=== PATIENT | female | born 1980 | race Caucasian/White ===

== ENCOUNTER → 2017-07-16 | Outpatient (CLI) | payer OTHER | LOC: BMCIMAGING 11:09 | PROVIDERS: ATTEND Physician Assistant | DX: M79.89 Other specified soft tissue disorders (principal); M21.611 Bunion of right foot ==

== ENCOUNTER 2017-11-09 09:45 | Inpatient (IN) | payer OTHER ==
--- NOTE | 2017-11-09 10:22 | PDGENHP ---
History and Physical - Chief Complaint leaking fluid since 0400 clear fluid - History of Present Illness Patient is a 37 year old at 38 2/7 weeks gestation who presents to labor and delivery for SRom and contractions. SROM at 0400 clear fluid. + contractions +FM no vaginal bleeding History Information - Allergies/Home Medication List Allergies/Adverse Reactions: aloe Allergy (Verified 11/09/17 10:18) I have personally reviewed and updated: medical history Review of Systems Review of Systems: Physical Exam Physical Exam: Constitutional: no apparent distress Cardiovascular: regular rate and rhythym, no murmur, rub, or gallop Respiratory: no respiratory distress, clear to auscultation Gastrointestinal: soft, non-tender abdomen, no palpable masses, other (Gravid uterus EFW 8LB) Genitourinary: other (/high posterior nitrazine + Amnisure + Cephalic by ultrasound) Skin: warm, normal color Musculoskeletal: full muscle strength, no muscle tenderness Neurologic: AAOx3, sensation intact bilaterally Psychiatric: interacting appropriately, not anxious Lab Data & Imaging Review Amnisure + FHT 130 moderate variability Cat I [place] irregular q 6 min Assessment & Plan Assessment: IUP at 38 2/7 weeks gestation SRom clear fluid AMnisure positive AB negative/Rubella immune/GBS negative Cephalic by ultrasound Plan: Admit to labor and Delivery Expectant management Consider pitocin if no cervical change
[2017-11-09] MEDS ORDERED: OLIVE OIL 118 ML BTL MISC PRN (11:08)
[2017-11-09] MEDS ORDERED: OXYTOCIN 20 UNIT in LR 1,000 ML IV PRN (11:08)
[2017-11-09] MEDS ORDERED: LR 1,000 ML IV PRN (11:08)
[2017-11-09] MEDS ORDERED: EPSOM SALT 454 GM TP PRN (11:08)
[2017-11-09] MEDS ORDERED: AMMONIA AROMATIC 1 EACH AMP IH PRN (11:08)
[2017-11-09] MEDS ORDERED: MISOPROSTOL 200 MCG TAB PO PRN (11:08)
[2017-11-09] MEDS ORDERED: TERBUTALINE SULFATE 1 MG/ML VIAL IV PRN (11:08)
[2017-11-09 12:44] LABS: PLATELET COUNT 130 10^3/uL (150-400)
[2017-11-09] MEDS ORDERED: LIDOCAINE 1% 300 MG/30 ML SDV ONE (14:16)
[2017-11-09] MEDS ORDERED: OLIVE OIL 118 ML BTL ONE (14:16)
[2017-11-09] MEDS ORDERED: AMMONIA AROMATIC 1 EACH AMP IH ONE (14:17)
[2017-11-09] MEDS ORDERED: MISOPROSTOL 200 MCG TAB ONE (14:17)
[2017-11-09] MEDS ORDERED: OXYTOCIN 10 UNIT/ML VIAL ONE (14:17)
[2017-11-09] MEDS ORDERED: PHENYLEPHRINE HCL 100 MCG/ML SYR ONE (15:00)
[2017-11-09] MEDS ORDERED: fentaNYL 100 MCG/2 ML INJ ONE (15:01)
[2017-11-09] MEDS ORDERED: BUPIVACAINE/EPI 0.5% 30 ML SDV ONE (15:03)
[2017-11-09] MEDS ORDERED: ONDANSETRON 4 MG/2 ML VIAL IVP PRN (15:27)
[2017-11-09] MEDS ORDERED: PHENYLEPHRINE HCL 100 MCG/ML SYR IVP PRN (15:27)
[2017-11-09] MEDS ORDERED: LR 500 ML IV SCH (15:30)
[2017-11-09] MEDS ORDERED: fentaNYL 2MCG/ML/BUP 0.1% RTU 100 ML EP SCH (15:30)
--- NOTE | 2017-11-09 15:30 | PREANESOB ---
Obstetric Pre-Anesthesia Info - General Info Proposed Procedure: Labor Epidural : 3 Para: 1 CANDICE: 11/21/17 Gestational Age: 38 week(s) and 2 day(s) - Info Status: Full Term - Labor Status Cervical Dilation per last OB SVE: 4 Rupture of Membranes Date: 11/09/17 Rupture of Membranes Time: 05:00 Indications for Labor Analgesia: Pain Control Labor Epidural: Yes Anesthesia Allergies/Adverse Reactions: Allergy/AdvReac Type Severity Reaction Status Date / Time aloe Allergy Verified 11/09/17 12:48 Home Medications: Medication Instructions Recorded IRON 130 mg PO DAILY 11/09/17 Vit27&Calcium/Iron/FA 1 tab PO DAILY 11/09/17 [] Visit Medications: Generic Name Dose Route Start Last Admin Trade Name Freq PRN Reason Stop Dose Admin Ammonia (Aromatic Spirit) 1 each 11/09/17 11:08 Ammonia Aromatic IH 11/19/17 11:07 ONCE PRN Fainting Lactated Ringer's 1,000 mls @ 0 mls/hr 11/09/17 11:08 Lr IV 11/10/17 11:07 PRN PRN SEE PROTOCOL CONDITIONS Protocol Per Protocol Oxytocin 20 unit/ Lactated 1,002 mls @ 150 mls/hr 11/09/17 11:08 Ringer's IV PRN PRN Post- bleeding Ibuprofen 600 mg 11/09/17 11:08 Motrin PO 05/08/18 11:07 Q6HRS PRN post , inflammation Magnesium Sulfate 454 gm 11/09/17 11:08 Epsom Salt TP 05/08/18 11:07 Q1H PRN perineal discomfort Misoprostol 800 - 1,000 mcg 11/09/17 11:08 Cytotec PO ONCE PRN Vaginal Atony/Bleeding Fallentimber Oil 118 ml 11/09/17 11:08 Sweet Oil MISC 05/08/18 11:07 ONCE PRN perineal massage Terbutaline Sulfate 0.25 mg 11/09/17 11:08 Brethine IV 05/08/18 11:07 ONCE PRN Tachysystole Discontinued Medications Generic Name Dose Route Start Last Admin Trade Name Freq PRN Reason Stop Dose Admin Ammonia (Aromatic Spirit) Confirm 11/09/17 14:17 Ammonia Aromatic Administered 11/09/17 14:18 Dose 1 each IH .STK-MED ONE Bupivacaine HCl/Epinephrine Bitart Confirm 11/09/17 15:03 Bupivacaine/Epi Administered 11/09/17 15:04 Dose 30 ml .ROUTE .STK-MED ONE Fentanyl Confirm 11/09/17 15:01 Sublimaze Administered 11/09/17 15:02 Dose 100 mcg .ROUTE .STK-MED ONE Lidocaine HCl Confirm 11/09/17 14:16 Lidocaine Hcl 1% Administered 11/09/17 14:17 Dose 300 mg .ROUTE .STK-MED ONE Misoprostol Confirm 11/09/17 14:17 Cytotec Administered 11/09/17 14:18 Dose 1,000 mcg .ROUTE .STK-MED ONE Fallentimber Oil Confirm 11/09/17 14:16 Sweet Oil Administered 11/09/17 14:17 Dose 118 ml .ROUTE .STK-MED ONE Oxytocin Confirm 11/09/17 14:17 Pitocin Administered 11/09/17 14:18 Dose 50 unit .ROUTE .STK-MED ONE Phenylephrine HCl Confirm 11/09/17 15:00 Neosynephrine Administered 11/09/17 15:01 Dose 1,000 mcg .ROUTE .STK-MED ONE - Vital Signs Height/Weight (Nursing): Height 165.1 cm Weight 78.925 kg Labs: 11/09/17 12:29 Patient ABO/Rh AB NEGATIVE 11/09/17 12:29
[2017-11-09] MEDS ORDERED: LR 500 ML IV PRN (15:46)
[2017-11-09] MEDS ORDERED: OXYTOCIN 30 UNIT in NS 500 ML IV SCH (16:00)
[2017-11-09] MEDS ORDERED: DOCUSATE SODIUM 100 MG CAP PO PRN (18:27)
--- NOTE | 2017-11-09 18:31 | OBDEL ---
Info Type: Vaginal Presentation at Delivery: Vertex L&D Analgesia/Anesthesia Type: Epidural GBS+: No Indications for Delivery: Spontaneous Labor Vaginal Delivery - Delivery Provider Delivery Physician/CNM: Argelia Millan - Labor and Delivery Onset of Contractions Date: 11/09/17 Onset of Contractions Time: 04:00 Onset of Contractions Type: Spontaneous Rupture of Membranes Date: 11/09/17 Rupture of Membranes Time: 05:00 Rupture of Membranes Type: Spontaneous Amniotic Fluid Color: Clear Dilation Complete Date: 11/09/17 Dilation Complete Time: 17:00 Placenta Delivery Date: 11/09/17 Placenta Delivery Time: 18:07 Total Hours of Labor: 14 Laceration: 1st Degree Repair: 2-0 Vaginal Sponge Count Correct: Yes Vaginal Needle Count Correct: Yes Vaginal Sweep Performed: Yes EBL: 400 Delivery Events: None Data CANDICE: 11/21/17 Gestational Age: 38 week(s) and 2 day(s) ICD10 Worksheet Patient Problems: Problems Problem Status Onset History of delivery, currently Acute Labor abnormal Acute - ICD10 Problem Qualifiers (1) Labor abnormal (2) History of delivery, currently
[2017-11-09] MEDS ORDERED: MISOPROSTOL 200 MCG TAB PR PRN (18:32)
[2017-11-09 21:23] VITALS: RESP 18
[2017-11-09] MEDS: IBUPROFEN 600 MG TAB PO PRN (21:54)
[2017-11-10] MEDS: HYDROCODONE/APAP 5/325 TAB PO PRN ×3 (02:02→18:26)
[2017-11-10] MEDS: IBUPROFEN 600 MG TAB PO PRN ×3 (03:51→16:21)
[2017-11-10 04:12] LABS: PLATELET COUNT 124 10^3/uL (150-400)
[2017-11-10 05:37] VITALS: BP 130/85; PULSE 87; TEMP 97.6; O2SAT 96
--- NOTE | 2017-11-10 08:37 | OBPP ---
Progress Note Assessment/Plan: Assessment: Post Day 1 stable afebrile wants to go home Gestational thrombocytopenia Plan: 11/10/17 08:33 Discharge home Follow up in four and 6 weeks 11/10/17 09:02 Subjective/ Course: 11/10/17 09:00 Patient doing well tolerating Tolerating diet, ambulating and flatus patient wants to go home today Objective: 11/10/17 04:00 Patient ABO/Rh AB NEGATIVE 11/09/17 20:31 Temp Pulse Resp BP Pulse Ox 36.4 C 87 18 130/85 H 96 11/10/17 00:30 11/10/17 00:30 11/10/17 00:30 11/10/17 00:30 11/10/17 00:30 Uterine Position/Fundal Height: Umbilicus -2 Uterine Tone: Firm Physical Exam - Physical Exam Neck: non-tender, full range of motion, supple Respiratory: chest non-tender, lungs clear, normal breath sounds Cardiac/Chest: normal peripheral pulses, regular rate, rhythm Abdomen: normal bowel sounds, non-tender Skin: normal color, warm/dry Neuro/Psych: no motor/sensory deficits, alert, normal mood/affect, oriented x 3
--- NOTE | 2017-11-10 09:04 | OBGCSDC ---
General Delivery Information - General Info : 3 Para: 2 Abortions: 1 Type: Vaginal L&D Analgesia/Anesthesia Type: Epidural Admission Date: 11/09/17 Labs: Patient ABO/Rh AB NEGATIVE 11/09/17 20:31 Hct 33.9 % (38.0-47.0) L 11/10/17 04:00 - Hospital Course : 11/10/17 09:00 Patient doing well tolerating Tolerating diet, ambulating and flatus patient wants to go home today Vaginal - Delivery Provider Delivery Physician/CNM: Argelia Millan - Diagnosis Labor: Spontaneous Rupture of Membranes Type: Spontaneous Amniotic Fluid Color: Clear Laceration: 1st Degree Repair: 2-0 Delivery Events: None - Delivery EBL: 400 [place] Data CANDICE: 11/21/17 Gestational Age: 38 week(s) and 3 day(s) [place] Delivery Date: 11/09/17 Delivery Time: 18:03 Sex of : Female Score (1 Min): 9 Score (5 Min): 9 Discharge Information - Discharge Information Prescriptions: Hydrocodone/APAP 5/325 [[place] 5/325 (*)] 1 - 2 tab PO Q4HRS PRN #30 tab PRN Reason: Pain, Moderate Ibuprofen [Motrin (*)] 600 mg PO Q6HRS PRN #30 tab PRN Reason: post , inflammation Condition: Good Instruction/Follow Up: Four Weeks (4 weeks wellness check 6 weeks post check. CBC at 4 weeks visit)
== END 2017-11-10 18:40 | disposition home or self-care (01) | DRG 775 ==
LOC: OBSVTOIN 09:45 → FLD 09:45 → FOB 20:42
PROVIDERS: ADMIT Obstetrics & Gynecology; ATTEND Obstetrics & Gynecology
PROC: 0HQ9XZZ Repair Perineum Skin, External Approach (ICD-10-PCS; principal; 2017-11-09)
PROC: 10E0XZZ Delivery of Products of Conception, External Approach (ICD-10-PCS; principal; 2017-11-09)
DX: O99.113 Other diseases of the blood and blood-forming organs and certain disorders involving the immune mechanism complicating pregnancy, third trimester (principal); Z37.0 Single live birth; D69.6 Thrombocytopenia, unspecified; O70.0 First degree perineal laceration during delivery; Z3A.38 38 weeks gestation of pregnancy
CPT/HCPCS: J2370; J3010

== ENCOUNTER 2018-04-18 17:18 | Emergency (ER) | payer OTHER ==
[2018-04-18] MEDS ORDERED: LORazepam 2 MG/ML INJ IVP ONE (18:21)
[2018-04-18] MEDS ORDERED: NS 1,000 ML IV ONE (18:22)
--- NOTE | 2018-04-18 18:25 | EDPHY ---
H & P Stated Complaint: dizzy, palpitations Time Seen by Provider: 04/18/18 18:13 HPI/ROS: CHIEF COMPLAINT: Anxiety HISTORY OF PRESENT ILLNESS: Patient is a 37-year-old female who is sent to the ER by her primary Radha Billy. The patient is 5 months and has been suffering from depression and anxiety. She has been trying to get a appoint with the psychiatrist but there is a [address] Billy is office they have prescribed Prozac and gradual increased the dose to 30 mg twice a day because 2 weeks ago when she was feeling suicidal. They have since decreased back down to 5 mg twice a day have now started nortriptyline. She takes Ambien and occasionally house in at night to sleep. She also takes an [id number] medication called "simply sleep". Today she presented to Dr. Billy is office where she was found to be hypertensive and tachycardic. They are concerned for serotonin syndrome or hypothyroidism and referred her to the ER. She did have her thyroid tests done 1 month ago and they were normal. REVIEW OF SYSTEMS: Constitutional: denies: chills, fever, recent illness, recent injury EENTM: denies: blurred vision, double vision, nose congestion Respiratory: denies: cough, shortness of breath Cardiac: Palpitations Gastrointestinal/Abdominal: denies: abdominal pain, diarrhea, nausea, vomiting, blood streaked stools Genitourinary: denies: dysuria, frequency, hematuria, pain Musculoskeletal: denies: joint pain, muscle pain Skin: denies: lesions, rash, jaundice, bruising Neurological: denies: headache, numbness, paresthesia, tingling, dizziness, weakness Hematologic/Lymphatic: denies: blood clots, easy bleeding, easy bruising Immunologic/allergic: denies: HIV/AIDS, transplant EXAM: GENERAL: Well-appearing, well-nourished and in no acute distress. HEAD: Atraumatic, normocephalic. EYES: Pupils equal round and reactive to light, extraocular movements intact, sclera anicteric, conjunctiva are normal. ENT: TMs normal, nares patent, oropharynx clear without exudates. Moist mucous membranes. NECK: Normal range of motion, supple without lymphadenopathy or JVD. LUNGS: Breath sounds clear to auscultation bilaterally and equal. No wheezes rales or rhonchi. HEART: Regular rate and rhythm without murmurs, rubs or gallops. ABDOMEN: Soft, nontender, normoactive bowel sounds. No guarding, no rebound. No masses appreciated. BACK: No CVA tenderness, no spinal tenderness, step-offs or deformities EXTREMITIES: Normal range of motion, no pitting or edema. No clubbing or cyanosis. NEUROLOGICAL: Cranial nerves II through XII grossly intact. Normal speech, normal gait. 5/5 strength, normal movement in all extremities, normal sensation PSYCH: Normal mood, normal affect. SKIN: Warm, dry, normal turgor, no visible rashes or lesions. Source: Patient Exam Limitations: No limitations - Personal History LMP (Females 10-55): 15-21 Days Ago Current Tetanus/Diphtheria Vaccine: Yes Current Tetanus Diphtheria and Acellular Pertussis (TDAP): Yes - Medical/Surgical History Hx Asthma: No Hx Chronic Respiratory Disease: No Hx Diabetes: No Hx Cardiac Disease: No Hx Renal Disease: No Hx Cirrhosis: No Hx Alcoholism: No Hx HIV/AIDS: No Hx Splenectomy or Spleen Trauma: No Other PMH: hx of delivery at 36 wks, rh neg, IVF ,rh neg. ferritin deficiency PPD - Family History Significant Family History: No pertinent family hx - Social History Smoking Status: Never smoked Alcohol Use: None Constitutional: Initial Vital Signs Temperature (C) 37 C 04/18/18 17:28 Heart Rate 88 04/18/18 17:28 Respiratory Rate 16 04/18/18 17:28 Blood Pressure 133/84 H 04/18/18 17:28 O2 Sat (%) 97 04/18/18 17:28 O2 Delivery Mode Room Air Allergies/Adverse Reactions: aloe Allergy (Verified 11/09/17 12:48) Home Medications: Medication Instructions Recorded Ibuprofen [Motrin (*)] 600 mg PO Q6HRS PRN #30 tab 11/10/17 Ambien 04/18/18 LORazepam [Ativan 1 mg (RX)] 1 mg PO Q6-8PRN PRN #10 tab 04/18/18 Nortriptyline HCl 04/18/18 Prozac 10 MG (*) 04/18/18 Medical Decision Making - Diagnostics EKG Interpretation: An EKG obtained and was read and documented in trace view. Please see trace view for full reading and report. Sinus rhythm, no QT prolongation or QRS widening. Diffuse flipped T-waves, no previous for comparison ED Course/Re-evaluation: Here triage the patient is stable vital signs. She is slightly anxious and tachycardic in the room during our interview. Will treat her with Ativan and obtain lab work. She has not had a fever. She has completely normal mental status and no myoclonus or rigidity no hyperreflexia. No confusion or disorientation. No ache at the seizure tremors. No diaphoresis or fever. No GI symptoms. I do not suspect serotonin syndrome. 7:55 p.m. the patient's vital signs have look very well. She does occasionally get tachycardic when she has periods of anxiety. The the Ativan has helped quite a bit. She has been evaluated by Mental Health and given resources and follow-up planned for tomorrow. I will give her a prescription for Ativan p.r.n.. She will continue taking her antidepressants. Differential Diagnosis: Partial list of the Differential diagnosis considered include but were not limited to; depression, the anxiety, medication reaction and although unlikely based on the history and physical exam, I also considered malignant hypothermia, serotonin syndrome, hyperthyroidism. I discussed these differential diagnoses and the plan with the patient as well as the usual and expected course. The patient understands that the diagnosis is provisional and that in medicine we are not always correct and that further workup is often warranted. Usual and customary warnings were given. All of the patient's questions were answered. The patient was instructed to return to the emergency department should the symptoms at all worsen or return, otherwise to followup with the physician as we discussed. - Data Points Laboratory Results: Laboratory Results 04/18/18 18:20 04/18/18 18:20 04/18/18 04/18/18 04/18/18 18:20 18:20 18:20 WBC RBC Hgb Hct MCV MCH MCHC RDW Plt Count MPV Neut % (Auto) Lymph % (Auto) Mckenzie % (Auto) Eos % (Auto) Baso % (Auto) Nucleat RBC Rel Count Absolute Neuts (auto) Absolute Lymphs (auto) Absolute Monos (auto) Absolute Eos (auto) Absolute Basos (auto) Absolute Nucleated RBC Immature Gran % Immature Gran # Sodium 142 mEq/L mEq/L (135-145) Potassium 3.8 mEq/L mEq/L (3.3-5.0) Chloride 103 mEq/L mEq/L (97-110) Carbon Dioxide 24 mEq/l mEq/l (22-31) Anion Gap 15 mEq/L mEq/L (8-16) BUN 13 mg/dL mg/dL (7-23) Creatinine 0.8 mg/dL mg/dL (0.6-1.0) Estimated GFR > 60 Glucose 107 mg/dL H mg/dL (70-100) Calcium 10.2 mg/dL mg/dL (8.5-10.4) TSH 2.060 uIU/mL uIU/mL (0.465-4.680) Beta HCG, Qual NEGATIVE Urine Opiates Screen NEGATIVE (NEGATIVE) Urine Barbiturates NEGATIVE (NEGATIVE) Ur Phencyclidine Scrn NEGATIVE (NEGATIVE) Ur Amphetamine Screen NEGATIVE (NEGATIVE) U Benzodiazepines Scrn NEGATIVE (NEGATIVE) Urine Cocaine Screen NEGATIVE (NEGATIVE) U Marijuana (THC) Screen NEGATIVE (NEGATIVE) Ethyl Alcohol < 10 mg/dL mg/dL (0-10) 04/18/18 18:20 WBC 7.62 10^3/uL 10^3/uL (3.80-9.50) RBC 5.03 10^6/uL 10^6/uL (4.18-5.33) Hgb 15.9 g/dL g/dL (12.6-16.3) Hct 45.3 % % (38.0-47.0) MCV 90.1 fL fL (81.5-99.8) MCH 31.6 pg pg (27.9-34.1) MCHC 35.1 g/dL g/dL (32.4-36.7) RDW 12.5 % % (11.5-15.2) Plt Count 240 10^3/uL 10^3/uL (150-400) MPV 10.5 fL fL (8.7-11.7) Neut % (Auto) 69.8 % % (39.3-74.2) Lymph % (Auto) 22.0 % % (15.0-45.0) Mckenzie % (Auto) 6.4 % % (4.5-13.0) Eos % (Auto) 0.8 % % (0.6-7.6) Baso % (Auto) 0.7 % % (0.3-1.7) Nucleat RBC Rel Count 0.0 % % (0.0-0.2) Absolute Neuts (auto) 5.32 10^3/uL 10^3/uL (1.70-6.50) Absolute Lymphs (auto) 1.68 10^3/uL 10^3/uL (1.00-3.00) Absolute Monos (auto) 0.49 10^3/uL 10^3/uL (0.30-0.80) Absolute Eos (auto) 0.06 10^3/uL 10^3/uL (0.03-0.40) Absolute Basos (auto) 0.05 10^3/uL 10^3/uL (0.02-0.10) Absolute Nucleated RBC 0.00 10^3/uL 10^3/uL (0-0.01) Immature Gran % 0.3 % % (0.0-1.1) Immature Gran # 0.02 10^3/uL 10^3/uL (0.00-0.10) Sodium Potassium Chloride Carbon Dioxide Anion Gap BUN Creatinine Estimated GFR Glucose Calcium TSH Beta HCG, Qual Urine Opiates Screen Urine Barbiturates Ur Phencyclidine Scrn Ur Amphetamine Screen U Benzodiazepines Scrn Urine Cocaine Screen U Marijuana (THC) Screen Ethyl Alcohol Medications Given: Discontinued Medications Sodium Chloride (Ns) 1,000 mls @ 0 mls/hr IV EDNOW ONE; Wide Open PRN Reason: Protocol Stop: 04/18/18 18:23 Last Admin: 04/18/18 18:29 Dose: 1,000 mls Lorazepam (Ativan Injection) 1 mg IVP EDNOW ONE Stop: 04/18/18 18:22 Last Admin: 04/18/18 18:28 Dose: 1 mg Lorazepam (Ativan 1 Mg Prepack#4) 1 btl TAKEHOME EDNOW ONE Stop: 04/18/18 20:09 Last Admin: 04/18/18 20:31 Dose: 1 btl Departure - Departure Disposition: Home, Routine, Self-Care Clinical Impression: Anxiety, depression Condition: Fair Instructions: Lorazepam (By mouth), Depression (DC), Anxiety (ED) Referrals: Radha Billy MD [Primary Care Provider] - As per Instructions Prescriptions: LORazepam [Ativan 1 mg (RX)] 1 mg PO Q6-8PRN PRN #10 tab PRN Reason: *Anxiety/Agitation/Insomnia
[2018-04-18 18:35] LABS: PLATELET COUNT 240 10^3/uL (150-400)
--- NOTE | 2018-04-18 18:40 | CPEKG ---
Heart Rate: 90 RR Interval: 667 P-R Interval: 164 QRSD Interval: 90 QT Interval: 344 QTC Interval: 421 P Pierson: 64 QRS Pierson: 67 T Wave Pierson: 267 EKG Severity - ABNORMAL ECG - EKG Impression: SINUS RHYTHM EKG Impression: NONSPECIFIC T ABNORMALITIES, DIFFUSE LEADS Electronically Signed By: Keo Hernandez 18-Apr-2018 18:49:07
[2018-04-18] MEDS ORDERED: LORAZEPAM 1 MG PREPACK#4 BTL TAKEHOME ONE (20:08)
[2018-04-18 20:34] VITALS: BP 132/89
== END 2018-04-18 20:34 | disposition home or self-care (01) ==
DX: F41.9 Anxiety disorder, unspecified (principal); F32.9 Major depressive disorder, single episode, unspecified; E86.9 Volume depletion, unspecified
CPT/HCPCS: 80305; 96374; G0480; J2060